=== PATIENT | female | born 1960 | race Native Hawaiian/Other Pacific Islander ===

== ENCOUNTER 2018-12-02 11:09 | Outpatient (CLI) | payer OTHER ==
[2018-12-02 12:15] LABS: PLATELET COUNT 314 K/uL (152-353)
== END 2018-12-02 22:05 | disposition home or self-care (01) ==
LOC: LABW 11:09
PROVIDERS: Nurse Practitioner Family
DX: R73.9 Hyperglycemia, unspecified (principal); I10 Essential (primary) hypertension; D53.9 Nutritional anemia, unspecified
CPT/HCPCS: 36415; 80061; 82728; 82947; 83036; 83540; 84439; 84443; 85027

== ENCOUNTER 2019-10-27 10:54 | Outpatient (CLI) | payer OTHER | END 2019-10-27 20:39 | disposition home or self-care (01) | LOC: MAMMO 10:54 | DX: Z12.31 Encounter for screening mammogram for malignant neoplasm of breast (principal) ==